=== PATIENT | female | born 1950 | race Hispanic/Latino ===

== ENCOUNTER 2024-07-12 13:43 | Emergency (ER) | payer OTHER ==
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
[2024-07-12 16:55] VITALS: BP 191/96
[2024-07-12 16:57] VITALS: TEMP 97.2; O2SAT 99
--- NOTE | 2024-07-14 12:41 | EKG ---
Test Date: 2024-07-12 Test Time: 16:04:56 Inventory Accountant: TOM MEASUREMENT RESULTS: Intervals: Rate: 78 NJ: 130 QRSD: 78 QT: 380 QTc: 433 [place]: P: 62 NJ: 130 QRS: 62 T: 81 INTERPRETIVE STATEMENTS: Normal sinus rhythm Normal ECG No previous ECG available for comparison Electronically Signed On 07-14-24 12:37:35 CDT by Ritesh King
== END 2024-07-12 16:45 | disposition home or self-care (01) ==
LOC: ER 13:43
DX: R51.9 Headache, unspecified (principal); M54.2 Cervicalgia; R42 Dizziness and giddiness; V59.50XA Passenger in pick-up truck or van injured in collision with unspecified motor vehicles in traffic accident, initial encounter; I10 Essential (primary) hypertension
CPT/HCPCS: 70450; 72125; 93005; 99283